=== PATIENT | female | born 1975 | race Caucasian/White ===

== ENCOUNTER 2018-09-22 12:46 | Emergency (ER) | payer OTHER ==
[2018-09-22 12:54] VITALS: BP 125/72; PULSE 86; TEMP 97.5; BMI 31.8
--- NOTE | 2018-09-22 13:17 | PDOC ---
History of Present Illness - General Chief Complaint: Laceration Stated Complaint: Laceration Time Seen by Provider: 09/22/18 13:16 History Source: Patient Exam Limitations: No Limitations - History of Present Illness Initial Comments: 09/22/18 13:29 While getting into the bathtub this afternoon, slipped on the floor falling into the tub striking right cheek on the edge of the faucet handle. Patient incurred a 2 cm laceration to the lateral aspect of face, and fell into the tub. States has no other injury or pain. Occurred: reports: just prior to arrival, this afternoon Severity: reports: mild, moderate Pain Location: reports: face Method of Injury: Yes: fall Loss of Consciousness: no loss of consciousness Associated Symptoms (Fall): denies symptoms, headache Past History - Travel Traveled outside of the country in the last 30 days: No Close contact w/someone who was outside of country & ill: No - Past Medical History Allergies/Adverse Reactions: Allergies Allergy/AdvReac Type Severity Reaction Status Date / Time aspirin Allergy Verified 09/22/18 12:51 Penicillins Allergy Verified 09/22/18 12:51 Home Medications: Ambulatory Orders Duloxetine HCl [Cymbalta -] 60 mg PO DAILY 10/28/13 Mag Hydrox/Al Hydrox/Simeth [MAALOX *SUSPENSION* -] 30 ml PO TID #0 oral.susp Pantoprazole Sodium [Protonix IV] 40 mg PO BID #0 vial 11/04/13 Ferrous Sulfate [Feosol] 325 mg PO DAILY #0 ud 08/30/14 Nicotine Patch [Nicoderm Patch -] 14 mg TD DAILY #14 patch 08/30/14 Sucralfate [Carafate -] 1 gm PO BID #90 tablet 08/30/14 Meclizine HCl 25 mg PO QID PRN #30 tablet 12/27/15 Anemia: No Asthma: No Cancer: No Cardiac Disorders: No CVA: No COPD: No CHF: No Dementia: No Diabetes: No GI Disorders: Yes (ULCERS) Disorders: No HTN: No Hypercholesterolemia: No Liver Disease: No Psychiatric Problems: Yes (DEPRESSION) Seizures: No Thyroid Disease: No - Surgical History Abdominal Surgery: No Appendectomy: No Cardiac Surgery: No Cholecystectomy: No Lung Surgery: No Neurologic Surgery: No Orthopedic Surgery: No - Immunization History Immunization Up to Date: Yes - Suicide/Smoking/Psychosocial Hx Smoking History: Current every day smoker Have you smoked in the past 12 months: Yes Number of Cigarettes Smoked Daily: 10 Information on smoking cessation initiated: No 'Breaking Loose' booklet given: 12/27/15 Hx Alcohol Use: No Drug/Substance Use Hx: No Substance Use Type: None Hx Substance Use Treatment: No Review of Systems - Review of Systems Able to Perform ROS?: Yes Is the patient limited Azeri proficient: Yes Constitutional: Yes: See HPI. No: Symptoms Reported, Chills, Fever HEENTM: Yes: Symptoms Reported, See HPI Respiratory: No: Symptoms reported Musculoskeletal: No: Symptoms Reported Integumentary: Yes: Symptoms Reported, See HPI, Bruising Neurological: Yes: Symptoms reported, See HPI, Headache All Other Systems: Reviewed and Negative *Physical Exam - Vital Signs Last Vital Signs Temp Pulse Resp BP Pulse Ox 97.5 F L 86 16 125/72 100 09/22/18 12:51 09/22/18 12:51 09/22/18 12:51 09/22/18 12:51 09/22/18 12:51 - Physical Exam General Appearance: Yes: Nourished, Appropriately Dressed, Apparent Distress, Mild Distress, Moderate Distress HEENT: positive: ODALYS, Normal ENT Inspection, TMs Normal (no hemotympanum, no drainage from nose or ears, no evidence of skull fracture), Pharynx Normal, Other (no crepitus or step-offs to orbit, lateral outer aspect of zygomatic arch to right cheek. Has full range of motion to TMJ, no dental injury. Laceration is approximately 2 cm linear). negative: Rhinorrhea Neck: positive: Supple. 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, Fully Oriented, Alert, Normal Mood/ Affect, Normal Response, Motor Strength 5/5 Moderate Sedation - Procedure Monitoring Vital Signs: Procedure Monitoring Vital Signs Temperature 97.5 F L 09/22/18 12:51 Pulse Rate 86 09/22/18 12:51 Respiratory Rate 16 09/22/18 12:51 Blood Pressure 125/72 09/22/18 12:51 O2 Sat by Pulse Oximetry (%) 100 09/22/18 12:51 Procedures - Laceration/Wound Repair Right Face Wound Length: to 2.5 cm Wound Explored: clean Wound's Depth, Shape: linear Irrigated w/ Saline: Yes Betadine Prep: Yes Anesthesia: 1% Lidocaine Wound Repaired With: Sutures Suture Size/Type: 6:0, nylon Layer Closure: No Progress Note - Progress Note Progress Note: Facial laceration repaired, tetanus/diphtheria/pertussis booster updated today *DC/Admit/Observation/Transfer Diagnosis at time of Disposition: Facial laceration Qualifiers: Encounter type: initial encounter Qualified Code(s): S01.81XA - Laceration without foreign body of other part of head, initial encounter - Discharge Dispostion Disposition: HOME Condition at time of disposition: Stable Decision to Admit order: No - Referrals - Patient Instructions Printed Discharge Instructions: DI for Laceration Repair Additional Instructions: Keep wound clean and dry Avoid strenuous activity/exercise to create a hot or sweaty environment until sutures are removed Reapply bacitracin ointment 2 times a day until sutures are removed Return to emergency Department or private physician in 5-7 days for suture removal May use Tylenol or Motrin for pain relief A tetanus/diphtheria/pertussis booster was updated today Return immediately to emergency department for redness, swelling, pain, or signs of infection - Post Discharge Activity Forms/Work/School Notes: Back to Work
[2018-09-22] MEDS ORDERED: IBUPROFEN 400 MG TABLET (FP) PO ONE ×2 (13:30→13:32)
[2018-09-22] MEDS ORDERED: DIPHTH,PERTUSS(ACELL),TET 0.5 ML DISP.SYRIN IM ONE ×2 (13:31→13:32)
== END 2018-09-22 14:08 | disposition home or self-care (01) ==
LOC: JERFT 12:46
PROC: 3E0234Z Introduction of Serum, Toxoid and Vaccine into Muscle, Percutaneous Approach (ICD-10-PCS; principal; 2018-09-22)
PROC: 0HQ1XZZ Repair Face Skin, External Approach (ICD-10-PCS; 2018-09-22)
DX: S01.411A Laceration without foreign body of right cheek and temporomandibular area, initial encounter (principal); W18.2XXA Fall in (into) shower or empty bathtub, initial encounter; Y93.E1 Activity, personal bathing and showering; Y92.012 Bathroom of single-family (private) house as the place of occurrence of the external cause; Y99.8 Other external cause status
CPT/HCPCS: 12011; 90471; 90715; 99281-25

== ENCOUNTER 2018-09-29 20:57 | Emergency (ER) | payer OTHER ==
--- NOTE | 2018-09-29 21:04 | PDOC ---
Rapid Medical Evaluation Time Seen by Provider: 09/29/18 21:01 Medical Evaluation: Allergies Allergy/AdvReac Type Severity Reaction Status Date / Time aspirin Allergy Verified 09/22/18 12:51 Penicillins Allergy Verified 09/22/18 12:51 09/29/18 21:03 I have performed a brief in-person evaluation of this patient. The patient presents with a chief complaint of: Suture removal s/p laceration repair 7 days ago. She slipped and fell in a tub but she has been feeling fine since. Pertinent physical exam findings: Wound beautifully healed on R side of cheek. No erythema, no signs of infection. 6 Sutures removed, using tweezers and 11 blade without complications. Pt discharged home. Return for worsening/concerning symptoms. Pt verbalizes understanding 09/29/18 21:11 Discharge Disposition - Diagnosis Visit for suture removal - Discharge Dispostion Disposition: HOME Condition at time of disposition: Stable Decision to Admit order: No - Referrals - Patient Instructions Printed Discharge Instructions: DI for Suture Removal Additional Instructions: Keep the wound clean and dry at all times. You may apply Mederma in 2 weeks after the wound has healed fully. Vitamin E is also recommended for scarring. - Post Discharge Activity
[2018-09-29 21:06] VITALS: BP 124/72; PULSE 88; TEMP 98.8; BMI 32.8
== END 2018-09-29 21:16 | disposition home or self-care (01) ==
LOC: JERFT 20:57
DX: Z48.817 Encounter for surgical aftercare following surgery on the skin and subcutaneous tissue (principal); Z48.02 Encounter for removal of sutures
CPT/HCPCS: 99281-25